=== PATIENT | female | born 1955 | race Caucasian/White ===

== ENCOUNTER 2018-05-01 10:58 | Inpatient (IN) | payer OTHER ==
[~2018-05-01] VITALS: Ht 167.6 cm; Wt 85.4 kg
[2018-05-01 11:03] VITALS: Ht 167.6 cm; Wt 85.4 kg
[2018-05-01 11:47] LABS: BASOPHIL % 0.4 % (0-2); PLATELET COUNT 281 x10^3mcL (130-400); RED CELL DISTRIBUTION WIDTH 13.5 % (11.5-14.5)
[2018-05-01 11:57] LABS: CALCIUM 8.6 mg/dL (8.5-10.1); CARBON DIOXIDE 27.6 mmol/L (21-32); CHLORIDE SERUM 105 mmol/L (98-107); CREATININE SERUM 0.9 mg/dL (0.6-1.0); GFR1 > 60 mL/min; GLUCOSE SERUM 95 mg/dL (74-106); POTASSIUM SERUM 4.2 mmol/L (3.5-5.1); SODIUM SERUM 137 mmol/L (136-145)
[2018-05-01 11:58] LABS: microscopic required? NO
[2018-05-01 12:09] LABS: ALBUMIN 3.6 g/dL (3.4-5.0); ALKALINE PHOSPHATASE 86 U/L (46-116); ALT/SGPT 26 U/L (14-59); AST/SGOT 21 U/L (15-37); BILIRUBIN TOTAL 0.49 mg/dL (0.20-1.00); C REACTIVE PROTEIN 4.8 mg/dL (<=0.9); TOTAL PROTEIN, SERUM 7.7 g/dL (6.4-8.2)
[2018-05-01 12:13] LABS: UA SPECIFIC GRAVITY <=1.005 (1.005-1.035); urine erythrocyte NEGATIVE (NEGATIVE)
[2018-05-01 12:14] LABS: CK-MB 0.7 ng/mL (0-3.6); T3 TOTAL 1.02 ng/mL
[2018-05-01 12:43] LABS: FREE T4 1.38 ng/dL (0.76-1.46); FREE THYROXINE INDEX 3.1 ug/dL (1.4-4.5); T4(THYROXINE) 8.9 ug/dL (4.7-13.3)
[2018-05-01] MEDS ORDERED: LOSARTAN POTASS25 M1 (13:12)
[2018-05-01 13:27] LABS: ERYTHROCYTE SED RATE 24 mm/hr (0-30)
[2018-05-01 14:17] LABS: CHOLESTEROL/HDL RATIO 3.6; MAGNESIUM 2.2 mg/dL (1.8-2.4); PHOSPHOROUS 3.4 mg/dL (2.5-4.9)
[2018-05-01 15:09] VITALS: BP 142/88
[2018-05-01 19:10] VITALS: BP 128/61
[2018-05-01 21:20] VITALS: BP 127/68
[2018-05-02 05:45] VITALS: BP 106/64
[2018-05-02 08:34] LABS: BASOPHIL % 0.7 % (0-2); PLATELET COUNT 295 x10^3mcL (130-400); RED CELL DISTRIBUTION WIDTH 13.3 % (11.5-14.5)
[2018-05-02 08:38] LABS: CALCIUM 8.8 mg/dL (8.5-10.1); CARBON DIOXIDE 28.1 mmol/L (21-32); CREATININE SERUM 1.1 mg/dL (0.6-1.0); MAGNESIUM 2.1 mg/dL (1.8-2.4); PHOSPHOROUS 3.4 mg/dL (2.5-4.9)
[2018-05-02 08:44] VITALS: BP 128/59
[2018-05-02 08:47] LABS: POTASSIUM SERUM 4.8 mmol/L (3.5-5.1)
[2018-05-02 12:34] VITALS: BP 112/61
[2018-05-02 17:00] VITALS: BP 104/60
[2018-05-02 20:58] VITALS: BP 118/60
[2018-05-03 05:23] VITALS: BP 123/76
[2018-05-03 05:59] LABS: BASOPHIL % 0.5 % (0-2); PLATELET COUNT 290 x10^3mcL (130-400); RED CELL DISTRIBUTION WIDTH 13.7 % (11.5-14.5)
[2018-05-03 06:31] LABS: CALCIUM 8.6 mg/dL (8.5-10.1); CHLORIDE SERUM 107 mmol/L (98-107); CREATININE SERUM 0.9 mg/dL (0.6-1.0); GFR1 > 60 mL/min; GLUCOSE SERUM 116 mg/dL (74-106); MAGNESIUM 2.2 mg/dL (1.8-2.4); PHOSPHOROUS 3.8 mg/dL (2.5-4.9); POTASSIUM SERUM 4.7 mmol/L (3.5-5.1); SODIUM SERUM 141 mmol/L (136-145)
[2018-05-03 08:55] VITALS: BP 101/51
[2018-05-03] MEDS ORDERED: ELIQUIS2.5 MG PO (09:46)
[2018-05-03] MEDS ORDERED: DIG125 PO (09:47)
[2018-05-03] MEDS ORDERED: METOPROLOL TART25 M1 PO (09:47)
[2018-05-03 10:47] VITALS: BP 101/51
== END 2018-05-03 11:20 | disposition home or self-care (01) | DRG 201 ==
LOC: ED 10:58 → DU 13:08
PROVIDERS: Family Medicine; Specialist
DX: I48.91 Unspecified atrial fibrillation (principal); E78.5 Hyperlipidemia, unspecified; M94.0 Chondrocostal junction syndrome [Tietze]; I10 Essential (primary) hypertension; R73.03 Prediabetes; Z66 Do not resuscitate; Z68.30 Body mass index [BMI] 30.0-30.9, adult; Z85.828 Personal history of other malignant neoplasm of skin; Z88.6 Allergy status to analgesic agent
CPT/HCPCS: 36600; 84439; 85378; J1160; J3490; J7030; J7050; Q0092; Q9967